=== PATIENT | male | born 1990 | race Caucasian/White ===

== ENCOUNTER 2022-10-21 18:04 | Emergency (ER) | payer OTHER, SELFPAY ==
[2022-10-21 18:13] VITALS: BP 151/80; PULSE 85; RESP 16; TEMP 37.1; O2SAT 98; BMI 23.0
--- NOTE | 2022-10-21 18:36 | CM.ED ---
Social Work SW contacted by Dionna with [facility] and informed the patient has been evaluated and pink slipped by Dionna due to HI. Once patient is medically cleared, SW will fax documents to [facility] so they can purse placement. Plan: medical clearance for psychiatric hospital referrals Kelly PEREA, TOM
[2022-10-21 18:44] LABS: Absolute Lymphocyte Count 2.33 X10^3/uL (0.83-4.51); Basophil# 0.09 X10^3/uL; Basophil% 0.9 % (0-1); Eosinophils% 3.2 % (0-5); Hematocrit 46.5 % (40-54); Hemoglobin 15.9 g/dL (13.0-16.5); Lymphocyte # 2.33 X10^3/ul (0.83-4.51); Lymphocyte % 24.6 % (19-41); Mean Corp Hgb Conc 34.2 g/dL (32-36); Mean Corpuscular Hgb 30.7 pg (27.0-32.0); Mean Corpuscular Volume 89.8 fL (80-94); Mean Platelet Vol. 8.8 fl (6.2-12.0); Monocyte# 0.77 X10^3/uL; Monocyte% 8.1 % (0-10); NRBC Flagged by Analyzer 0 % (0-5); Neutrophil # 5.96 X10^3/uL (2.7-7.7); Neutrophil % 62.9 % (47-70); Platelet Count 336 K/mm3 (150-450); RBC Distribution Width CV 11.9 % (11.6-14.6); Red Blood Count 5.18 M/mm3 (4.6-6.2); White Blood Count 9.5 K/mm3 (4.4-11.0)
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
[2022-10-21 19:01] LABS: Anion Gap 7 (5-15); BUN 14 mg/dL (7-18); BUN/Creat Ratio 14.3 RATIO (10-20); Calcium,Total 8.5 mg/dL (8.5-10.1); Chloride 108 mmol/L (98-107); Creatinine, Serum 0.98 mg/dL (0.70-1.30); EST Glomerular Filtration Rate 95 mL/min (>60); Est Glom Filt Rate - Afr Amer 115 mL/min (>60); Estimated Creatinine Clearance 120.21 ml/min; Glucose 87 mg/dL (74-106); Potassium 3.8 mmol/L (3.5-5.1); Sodium Level 141 mmol/L (136-145)
[2022-10-21 20:05] VITALS: RESP 18
[2022-10-21 20:23] LABS: Amphetamine Urine VISTA NEGATIVE (<1000 ng/mL); Barbiturate Urine VISTA NEGATIVE (< 200 ng/mL); Benzodiazepine Urine VISTA NEGATIVE (< 200 ng/mL); Cocaine Urine VISTA NEGATIVE (< 300 ng/mL); Ecstacy Urine VISTA NEGATIVE (< 500 ng/mL); Methadone Urine VISTA NEGATIVE (< 300 ng/mL); PCP Urine VISTA NEGATIVE (< 25 ng/mL); THC Urine VISTA NEGATIVE (< 50 ng/mL); Vista UDS pH Range 5
--- NOTE | 2022-10-21 20:27 | NURSING ---
crisis called at 2026
[2022-10-21 22:00] VITALS: RESP 18
[2022-10-22] VITALS: BP 137/81; PULSE 65; RESP 16; O2SAT 95
[2022-10-22 02:00] VITALS: RESP 18
[2022-10-22 04:00] VITALS: RESP 18
[2022-10-22 06:00] VITALS: BP 114/70; PULSE 85; RESP 18; O2SAT 100
--- NOTE | 2022-10-22 06:55 | ED.RN ---
REPORT CALLED TO DANIELLE AT [facility].
--- NOTE | 2022-10-22 06:55 | ED.RN ---
PT'S MOTHER CALLED TO CHECK ON PT'S STATUS AND REQUEST INFORMATION ABOUT HIM. PT ASKED THIS RN TO NOT PROVIDE ANY INFORMATION TO HER. MOTHER WAS INFORMED THAT THIS RN DID NOT HAVE PERMISSION TO SPEAK TO ANYONE ABOUT HIS STATUS.
--- NOTE | 2022-10-22 07:33 | NURSING ---
CALLED [facility], TALKED TO SAMARIA. ETA IS ANOTHER 30 MIN
== END 2022-10-22 08:45 ==
PROVIDERS: Emergency Provider Emergency Medicine; Visit Provider Emergency Medicine
DX: F23 Brief psychotic disorder (principal); R45.850 Homicidal ideations; F17.210 Nicotine dependence, cigarettes, uncomplicated
CPT/HCPCS: 99281; 80048; 80307; 82077; 85025; 87811; 99283